=== PATIENT | male | born 1990 | race Caucasian/White ===

== ENCOUNTER 2021-07-10 21:13 | Emergency (ER) | payer OTHER ==
[~2021-07-10] VITALS: Ht 177.8 cm; Wt 88.5 kg
[2021-07-10 21:47] VITALS: BP_SYST 141
[2021-07-10] MEDS ORDERED: NACL 0.9% 1,000 ML IV ONE (22:00)
[2021-07-10] MEDS ORDERED: ETOMIDATE 20 MG/ 10 ML VIAL (AMIDATE) IVP ONE (22:00)
[2021-07-10] MEDS ORDERED: IBUP-1970 PO (22:29)
[2021-07-10] MEDS ORDERED: HYDROcodone/ACETAMIN 7.5-325 MG TAB PO ONE (22:30)
[2021-07-10 22:51] VITALS: BP_SYST 130
== END 2021-07-10 23:16 | disposition home or self-care (01) ==
LOC: SED 21:13
DX: S43.005A Unspecified dislocation of left shoulder joint, initial encounter (principal); J45.909 Unspecified asthma, uncomplicated; W18.39XA Other fall on same level, initial encounter; Y93.89 Activity, other specified; Y92.89 Other specified places as the place of occurrence of the external cause; Y99.8 Other external cause status
CPT/HCPCS: 23650; 73030; 96360; 99152; 99285; J3490; J7030